=== PATIENT | female | born 1940 | race Two or more races ===

== ENCOUNTER 2017-03-26 10:31 | Outpatient (CLI) | payer OTHER ==
[~2017-03-26 10:31] MED LIST: AMBIEN10 MG PO; AMBIEN5 MG PO; BACLOFEN20 MG PO; CELEBREX100 MG PO; CLONAZEPAM2 MG PO; DICLOFENAC SODI50 MG PO; DITROPAN X15 MG/BOTT PO; EFFEXOR XR75 MG PO; GEODON80 MG PO; NEXIUM I.V40 MG/VIAL IV; OMEPRAZOLE20 MG PO; OXYCODONE HCL20 MG PO; RANITIDINE HCL300 M1 PO; SEROQUEL XR200 MG PO; SEROQUEL25 MG PO; TRAMADOL HCL50 MG PO; [UNRECOGNIZED DRUG - OTHER] PO
== END 2017-03-26 10:41 | disposition home or self-care (01) ==
LOC: RAD 501 10:31
DX: M41.80 Other forms of scoliosis, site unspecified (principal); M54.5 Low back pain

== ENCOUNTER 2017-03-26 11:19 | Outpatient (CLI) | payer OTHER | END 2017-03-26 17:00 | disposition home or self-care (01) | LOC: MRI 11:19 | DX: M41.87 Other forms of scoliosis, lumbosacral region (principal) | CPT/HCPCS: 72148 ==

== ENCOUNTER 2018-03-19 10:34 | Outpatient (CLI) | payer OTHER | END 2018-03-19 17:00 | disposition home or self-care (01) | LOC: MRI 10:34 | DX: M48.07 Spinal stenosis, lumbosacral region (principal); M54.5 Low back pain | CPT/HCPCS: 72148 ==

== ENCOUNTER → 2018-03-21 | Outpatient (CLI) | payer OTHER | END | disposition home or self-care (01) | LOC: MRI 15:05 | DX: I63.89 Other cerebral infarction (principal) | CPT/HCPCS: 70551 ==

== ENCOUNTER 2018-05-09 13:45 | Outpatient (CLI) | payer OTHER | END 2018-05-09 13:58 | disposition home or self-care (01) | LOC: RAD 501 13:45 | DX: R05 Cough (principal) ==

== ENCOUNTER 2018-06-13 10:01 | Emergency (ER) | payer OTHER ==
[~2018-06-13] VITALS: Ht 157.5 cm; Wt 47.6 kg
== END 2018-06-13 16:13 | disposition home or self-care (01) ==
LOC: ER 10:01
DX: R55 Syncope and collapse (principal)

== ENCOUNTER 2018-07-04 11:04 | Outpatient (CLI) | payer OTHER | END 2018-07-04 11:47 | disposition home or self-care (01) | LOC: RAD 501 11:04 | DX: R07.81 Pleurodynia (principal) ==

== ENCOUNTER 2018-07-10 09:25 | Emergency (ER) | payer OTHER ==
[~2018-07-10] VITALS: Ht 157.5 cm; Wt 45.4 kg
== END 2018-07-10 17:10 | disposition designated cancer center or children's hospital (05) ==
LOC: ER 09:25
DX: S36.09XA Other injury of spleen, initial encounter (principal); A41.9 Sepsis, unspecified organism; N39.0 Urinary tract infection, site not specified; B96.29 Other Escherichia coli [E. coli] as the cause of diseases classified elsewhere

== ENCOUNTER 2018-07-26 13:08 | Outpatient (CLI) | payer OTHER | END 2018-07-26 13:12 | disposition home or self-care (01) | LOC: RAD 13:08 | DX: R07.89 Other chest pain (principal) ==

== ENCOUNTER 2018-08-26 12:23 | Outpatient (CLI) | payer OTHER | END 2018-08-26 12:30 | disposition home or self-care (01) | LOC: RAD 12:23 | DX: R07.89 Other chest pain (principal) ==

== ENCOUNTER 2019-05-07 09:32 | Outpatient (CLI) | payer OTHER | END 2019-05-07 09:37 | disposition home or self-care (01) | LOC: RAD 09:32 | DX: M85.611 Other cyst of bone, right shoulder (principal) ==

== ENCOUNTER 2019-11-20 10:22 | Outpatient (CLI) | payer OTHER | END 2019-11-20 10:30 | disposition home or self-care (01) | LOC: RAD 10:22 | DX: M19.011 Primary osteoarthritis, right shoulder (principal) ==

== ENCOUNTER 2020-02-19 10:28 | Outpatient (CLI) | payer OTHER | END 2020-02-19 10:34 | disposition HB | LOC: RAD 10:28 | DX: M25.511 Pain in right shoulder (principal); S62.221A Displaced Rolando's fracture, right hand, initial encounter for closed fracture ==

== ENCOUNTER 2020-05-19 12:17 | Outpatient (CLI) | payer OTHER | END 2020-05-19 12:31 | disposition home or self-care (01) | LOC: RAD 12:17 | PROVIDERS: ATTEND Physical Medicine & Rehabilitation | DX: M25.511 Pain in right shoulder (principal) ==

== ENCOUNTER 2020-07-05 11:50 | Outpatient (CLI) | payer OTHER | END 2020-07-05 12:00 | disposition home or self-care (01) | LOC: RAD 11:50 | PROVIDERS: ATTEND Physical Medicine & Rehabilitation | DX: S42.91XD Fracture of right shoulder girdle, part unspecified, subsequent encounter for fracture with routine healing (principal); Z96.651 Presence of right artificial knee joint ==

== ENCOUNTER 2024-06-11 16:45 | Emergency (ER) | payer OTHER ==
[~2024-06-11] VITALS: Ht 157.5 cm; Wt 45.4 kg
[2024-06-11] MEDS ORDERED: METFORMIN HCL1000 M2 (17:07)
[2024-06-11] MEDS ORDERED: LEVOTHYROXINE25 MCG (17:07)
== END 2024-06-11 17:57 | disposition home or self-care (01) ==
LOC: ER 16:45
DX: K62.3 Rectal prolapse (principal); E11.9 Type 2 diabetes mellitus without complications; Z79.84 Long term (current) use of oral hypoglycemic drugs

== ENCOUNTER 2024-08-05 15:38 | Emergency (ER) | payer OTHER ==
[~2024-08-05] VITALS: Ht 157.5 cm; Wt 65.8 kg
[~2024-08-05 15:38] MED LIST changes: +LEVOTHYROXINE25 MCG; +METFORMIN HCL1000 M2
[2024-08-05] MEDS ORDERED: BUSPIRONE HCL10 MG PO (16:00)
[2024-08-05] MEDS ORDERED: 0.9 % SODIUM CHLORIDE 1,000 ML IV ONE (17:15)
[2024-08-05 18:18] LABS: BASO % 0.2 % (0.1-1.2); EOS % 7.6 % (0.7-7.0); HEMATOCRIT 28.2 % (34.1-44.9); LYMPH # 2.13 (1.18-3.74); LYMPH % 32.6 % (19.3-53.1); MEAN CORPUSCULAR HEMOGLOBIN 25.8 pg (25.6-32.2); MONO # 0.65 (0.24-0.82); MONO % 9.9 % (4.7-12.5); NEUT # 3.23 (1.56-6.13); NEUT % 49.4 % (34.0-71.1); PLATELET COUNT 382 K/uL (163-369); RED BLOOD COUNT 3.49 M/uL (3.93-5.22)
[2024-08-05 18:39] LABS: PARTIAL THROMBOPLASTIN TIME 23.4 SECONDS (22.0-34.0); PROTHROMBIN TIME 10.9 SECONDS (9.0-11.5)
[2024-08-05 18:49] LABS: BILIRUBIN TOTAL 0.18 mg/dL (0.3-1.2); CALCIUM 9.1 mg/dL (8.5-10.1); CREATININE SERUM 0.53 mg/dL (0.55-1.02); GFR 109.9; GLOBULINA 3.7 G/DL (2.4-3.5); POTASSIUM 4.08 mEq/L (3.5-5.1); TOTAL PROTEIN 6.7 gm/dL (6.4-8.2)
[2024-08-05] MEDS ORDERED: CIPRO500 MG PO (23:32)
[2024-08-05] MEDS ORDERED: PROBIOTIC1 EAC2 PO (23:32)
[2024-08-05] MEDS ORDERED: PEPCID AC20 MG PO (23:32)
[2024-08-05] MEDS ORDERED: METRONIDAZOLE500 MG PO (23:32)
== END 2024-08-06 06:51 | disposition home or self-care (01) ==
LOC: ER 15:38
PROVIDERS: General Practice
DX: K62.2 Anal prolapse (principal); E11.9 Type 2 diabetes mellitus without complications; Z79.84 Long term (current) use of oral hypoglycemic drugs
CPT/HCPCS: 36415; 74177; 96365; 96366; 99284; J7030; Q9965

== ENCOUNTER 2024-08-08 14:21 | Inpatient (IN) | payer OTHER ==
[~2024-08-08] VITALS: Ht 157.5 cm; Wt 45.4 kg
[~2024-08-08 14:21] MED LIST changes: +BUSPIRONE HCL10 MG PO; +CIPRO500 MG PO; +METRONIDAZOLE500 MG PO; +PEPCID AC20 MG PO; +PROBIOTIC1 EAC2 PO
--- NOTE | 2024-08-08 14:49 | NUR ---
PTE ALERTA Y ORIENTADA X3 REFIERE QUE VIENE EN EL JOSE DE [facility] A LA [facility] LA DRA. GALILEO MARTIN BA LA ENVIO PARA HOSPITALIZARLA YA QUE TIENE LA HEMOGLOBINA EN 9 Y EL LUNES ES SOMETIDA A TANIA OPERACION.SE MIDEN S/V Y SE UBICA EN K-8 CON BARANDAS ELEVADAS.
--- NOTE | 2024-08-08 16:29 | NUR ---
ARIANA HERNANDEZ REALIZA [facility] ORDEN MEDICA BAJO MEDIDAS ASEPTICAS. SE ORIENTA PTE QUIEN REFIERE ENTENDER Y ACEPTAR.
[2024-08-08 16:35] LABS: ABG PH 7.389 (7.35-7.45); ABG PO2 80.0 mmHg (80-100); BICARBONATE 26.7 mmol/l (23-25)
[2024-08-08 17:00] LABS: BASO % 0.3 % (0.1-1.2); EOS # 0.71 (0.04-0.54); EOS % 10.4 % (0.7-7.0); LYMPH # 1.67 (1.18-3.74); LYMPH % 24.6 % (19.3-53.1); MEAN PLATELET VOLUME 8.40 fl (9.4-12.4); MONO # 0.66 (0.24-0.82); MONO % 9.7 % (4.7-12.5); NEUT # 3.71 (1.56-6.13); NEUT % 54.6 % (34.0-71.1); RED CELL DISTRIBUTION WIDTH 17.4 % (11.6-14.4)
[2024-08-08 17:19] LABS: o2 21 %
[2024-08-08 17:19] LABS: COVID-19 AG NEGATIVE (NEGATIVE)
[2024-08-08 17:24] LABS: INR 0.99
[2024-08-08 17:33] LABS: ALT/SGPT 20.0 U/L (12-78); AST/SGOT 10.0 U/L (15-37); BILIRUBIN TOTAL 0.16 mg/dL (0.3-1.2); BUN CREA RATIO 46.0 (7.0-25.0); CREATININE SERUM 0.61 mg/dL (0.55-1.02); GFR 93.44; GLOBULINA 3.8 G/DL (2.4-3.5); GLUCOSE FASTING 128.0 mg/dL (65-100); OSMOLALITY SERUM 292.0 MOSM/KG (275-295)
[2024-08-08] MEDS ORDERED: ONDANSETRON HCL 2 MG/ML VIAL IV PRN (20:15)
[2024-08-08] MEDS ORDERED: MORPHINE SULFATE 4 MG/ML VIAL IV PRN (20:15)
[2024-08-08] MEDS ORDERED: RINGERS SOLUTION,LACTATED 1,000 ML IV SCH (20:15)
[2024-08-08] MEDS ORDERED: FAMOTIDINE/PF 20 MG/2 ML VIAL IV SCH (21:00)
[2024-08-09 01:19] VITALS: BP 125/82; O2SAT 95
[2024-08-09 07:30] VITALS: BP 126/76; O2SAT 95
[2024-08-09] MEDS ORDERED: LACTOBACILLUS ACIDOPHILUS 1 CAP CAP PO SCH (09:00)
[2024-08-09 16:00] VITALS: BP 136/81; O2SAT 95
[2024-08-09] MEDS ORDERED: MORPHINE SULFATE 2 MG/ML CARTRIDGE IV PRN (17:00)
[2024-08-09] MEDS ORDERED: POLYETHYLENE GLYCOL 3350 17 GM BLIST.PACK PO SCH (17:00)
[2024-08-09] MEDS ORDERED: DEXTROSE 50 % IN WATER 0.5 G/ML VIAL IV PRN (17:15)
[2024-08-09] MEDS ORDERED: INSULIN LISPRO 1,000 UNIT/10 ML UNITS SUBCUTANEO PRN (17:15)
[2024-08-09] MEDS ORDERED: CLONAZEPAM 0.5 MG TABLET PO SCH (21:00)
[2024-08-09] MEDS ORDERED: LEVALBUTEROL HCL 0.63 MG/3 ML SOLUTION IH SCH (21:00)
[2024-08-10] VITALS: BP 113/79; O2SAT 96
[2024-08-10] MEDS ORDERED: LEVOTHYROXINE SODIUM 75 MCG TABLET PO SCH (06:00)
[2024-08-10 07:15] VITALS: BP 124/77; O2SAT 97
[2024-08-10] MEDS ORDERED: POLYETHYLENE GLYCOL 3350 238 GM POWDER PO NR (09:30)
[2024-08-10 12:15] VITALS: BP 126/74; O2SAT 97
[2024-08-10] MEDS ORDERED: BISACODYL 5 MG TABLET.EC PO NR (13:00)
[2024-08-10 16:00] VITALS: BP 151/90; O2SAT 96
[2024-08-10] MEDS ORDERED: LEVALBUTEROL HCL 0.63 MG/3 ML SOLUTION IH SCH (17:00)
[2024-08-10 22:10] LABS: URINE APPEARANCE Clear; URINE BILIRRUBIN Negative (NEGATIVE); URINE BLOOD Negative; URINE COLOR Yellow; URINE GLUCOSE Negative (NEGATIVE); URINE KETONE Negative (NEGATIVE); URINE LEUKOCYTE Moderate; URINE NITRATE Negative; URINE PROTEIN Negative (NEGATIVE); URINE UROBILINOGEN 0.2 E.U./dl
[2024-08-10 22:20] LABS: URINE BACTERIA 9798.0 uL (0.0-1933); URINE CAST 1.61 uL (0.0-1.40); URINE EPITHELIAL CELLS 15.5 uL (0.0-38.8); URINE WBC 227.0 uL (0.0-23.2)
[2024-08-10 22:43] LABS: URINE RBC 1.9 uL (0.0-20.8)
[2024-08-10 22:45] LABS: URINE YEAST NEGATIVE /hpf
[2024-08-11 01:37] VITALS: BP 138/85; O2SAT 98
[2024-08-11 06:34] LABS: BASO % 0.2 % (0.1-1.2); EOS # 0.70 (0.04-0.54); LYMPH # 1.19 (1.18-3.74); LYMPH % 29.7 % (19.3-53.1); MEAN PLATELET VOLUME 8.90 fl (9.4-12.4); MONO # 0.43 (0.24-0.82); MONO % 10.7 % (4.7-12.5); NEUT # 1.66 (1.56-6.13); NEUT % 41.4 % (34.0-71.1); RED CELL DISTRIBUTION WIDTH 16.5 % (11.6-14.4)
[2024-08-11 06:50] LABS: BUN CREA RATIO 27.0 (7.0-25.0); CREATININE SERUM 0.48 mg/dL (0.55-1.02); GFR 123.21; GLUCOSE FASTING 110.0 mg/dL (65-100); OSMOLALITY SERUM 278.0 MOSM/KG (275-295)
[2024-08-11 06:59] LABS: EOS % 17.5 % (0.7-7.0)
[2024-08-11 08:00] VITALS: BP 130/86; O2SAT 95
[2024-08-11] MEDS ORDERED: CIPROFLOXACIN IN 5 % DEXTROSE 400 MG/200 ML PIGGYBAG IV STA (08:14)
[2024-08-11] MEDS ORDERED: MAGNESIUM SULFATE IN WATER 4 GM/100 ML PIGGYBACK IV SCH (17:00)
[2024-08-11 18:30] VITALS: BP 148/83; O2SAT 95
[2024-08-11] MEDS ORDERED: CIPROFLOXACIN IN 5 % DEXTROSE 400 MG/200 ML PIGGYBAG IV SCH (21:00)
[2024-08-11 21:18] LABS: BASO % 0.3 % (0.1-1.2); EOS # 0.57 (0.04-0.54); EOS % 14.3 % (0.7-7.0); LYMPH # 1.20 (1.18-3.74); LYMPH % 30.2 % (19.3-53.1); MEAN PLATELET VOLUME 8.10 fl (9.4-12.4); MONO # 0.34 (0.24-0.82); MONO % 8.5 % (4.7-12.5); NEUT # 1.83 (1.56-6.13); NEUT % 45.9 % (34.0-71.1); RED CELL DISTRIBUTION WIDTH 16.5 % (11.6-14.4)
[2024-08-11 21:37] LABS: BUN CREA RATIO 25.0 (7.0-25.0); CREATININE SERUM 0.61 mg/dL (0.55-1.02); GFR 93.44; GLUCOSE FASTING 113.0 mg/dL (65-100); OSMOLALITY SERUM 277.0 MOSM/KG (275-295)
[2024-08-11] MEDS ORDERED: MAGNESIUM SULFATE IN WATER 4 GM/100 ML PIGGYBACK IV ONE (22:30)
[2024-08-12] MEDS ORDERED: ACETAMINOPHEN 500 MG GEL..CAP PO SCH
[2024-08-12 07:16] LABS: BASO % 0.2 % (0.1-1.2); EOS # 0.01 (0.04-0.54); EOS % 0.1 % (0.7-7.0); LYMPH # 0.90 (1.18-3.74); LYMPH % 5.0 % (19.3-53.1); MEAN PLATELET VOLUME 8.20 fl (9.4-12.4); MONO # 0.76 (0.24-0.82); MONO % 4.2 % (4.7-12.5); NEUT # 16.28 (1.56-6.13); NEUT % 90.0 % (34.0-71.1); RED CELL DISTRIBUTION WIDTH 16.7 % (11.6-14.4)
[2024-08-12 08:00] VITALS: BP 105/63; O2SAT 96
[2024-08-12 08:02] LABS: BUN CREA RATIO 35.0 (7.0-25.0); CREATININE SERUM 0.55 mg/dL (0.55-1.02); GFR 105.3; GLUCOSE FASTING 119.0 mg/dL (65-100); OSMOLALITY SERUM 273.0 MOSM/KG (275-295)
[2024-08-12] MEDS ORDERED: HYOSCYAMINE SULFATE 0.125 MG TAB.SUBL SL SCH (09:00)
[2024-08-12] MEDS ORDERED: DOCUSATE SODIUM 100MG CAP PO SCH (09:00)
[2024-08-12] MEDS ORDERED: POLYETHYLENE GLYCOL 3350 17 GM BLIST.PACK PO SCH (09:00)
[2024-08-12 15:30] VITALS: BP 99/50; O2SAT 99
[2024-08-12] MEDS ORDERED: ENOXAPARIN SODIUM 40 MG/0.4 ML SYRINGE SUBCUTANEO SCH (17:00)
[2024-08-12] MEDS ORDERED: MORPHINE SULFATE 2 MG/ML CARTRIDGE IV STA (19:00)
[2024-08-12] MEDS ORDERED: MAGNESIUM CHLORIDE 70 MG TABLET.DR PO SCH (21:00)
[2024-08-13 01:22] VITALS: BP 110/69; O2SAT 95
[2024-08-13 06:54] LABS: BASO % 0.2 % (0.1-1.2); EOS # 0.22 (0.04-0.54); EOS % 2.2 % (0.7-7.0); LYMPH # 1.35 (1.18-3.74); LYMPH % 13.5 % (19.3-53.1); MEAN PLATELET VOLUME 8.10 fl (9.4-12.4); MONO # 0.72 (0.24-0.82); MONO % 7.2 % (4.7-12.5); NEUT # 7.62 (1.56-6.13); NEUT % 76.4 % (34.0-71.1); RED CELL DISTRIBUTION WIDTH 17.2 % (11.6-14.4)
[2024-08-13 07:25] LABS: BUN CREA RATIO 33.0 (7.0-25.0); CREATININE SERUM 0.61 mg/dL (0.55-1.02); GFR 93.44; GLUCOSE FASTING 145.0 mg/dL (65-100); OSMOLALITY SERUM 275.0 MOSM/KG (275-295)
[2024-08-13 08:00] VITALS: BP 104/67; O2SAT 95
[2024-08-13] MEDS ORDERED: NAPH,MB-DB/K PH,MBDB 1 PKT PACKET PO NR (08:30)
[2024-08-13] MEDS ORDERED: DOCUSATE SODIUM 100MG CAP PO SCH (09:00)
[2024-08-13] MEDS ORDERED: MAGNESIUM SULFATE/D5W 100 ML IV NR (09:00)
[2024-08-13] MEDS ORDERED: PANTOPRAZOLE SODIUM 40 MG/VIAL VIAL IV STA (11:12)
[2024-08-13 16:00] VITALS: BP 124/85; O2SAT 95
[2024-08-14 04:42] VITALS: BP 121/80; O2SAT 96
[2024-08-14 08:00] VITALS: BP 121/74; O2SAT 93
== END 2024-08-14 14:40 | disposition home or self-care (01) | DRG 330 ==
LOC: ER 14:21 → SURG 23:18
PROVIDERS: Emergency Medicine; Internal Medicine; ADMIT Colon & Rectal Surgery; ATTEND Colon & Rectal Surgery
PROC: 30233N1 Transfusion of Nonautologous Red Blood Cells into Peripheral Vein, Percutaneous Approach (ICD-10-PCS; 2024-08-09)
PROC: 0DTN7ZZ Resection of Sigmoid Colon, Via Natural or Artificial Opening (ICD-10-PCS; 2024-08-11)
PROC: 0DTP7ZZ Resection of Rectum, Via Natural or Artificial Opening (ICD-10-PCS; principal; 2024-08-11 15:30)
DX: K62.3 Rectal prolapse (principal); K62.5 Hemorrhage of anus and rectum; N39.0 Urinary tract infection, site not specified; D64.9 Anemia, unspecified; E11.9 Type 2 diabetes mellitus without complications; Z79.4 Long term (current) use of insulin